=== PATIENT | male | born 1935 | race Caucasian/White ===

== ENCOUNTER 2021-05-11 14:07 | Outpatient (CLI) | payer MEDICARE | END 2021-05-11 14:08 | disposition home or self-care (01) | LOC: BICMAMMO 14:07 | PROVIDERS: ATTEND Internal Medicine Rheumatology | DX: Z13.820 Encounter for screening for osteoporosis (principal); T38.0X1A Poisoning by glucocorticoids and synthetic analogues, accidental (unintentional), initial encounter | CPT/HCPCS: 77080 ==

== ENCOUNTER 2023-11-22 13:19 | Outpatient (CLI) | payer MEDICARE | END 2023-11-22 13:20 | disposition home or self-care (01) | LOC: BICRAD 13:19 | PROVIDERS: ATTEND Nurse Practitioner Adult Health | DX: M25.562 Pain in left knee (principal); M17.12 Unilateral primary osteoarthritis, left knee; C61 Malignant neoplasm of prostate | CPT/HCPCS: 80053; 84153 ==